=== PATIENT | male | born 2000 | race Caucasian/White ===

== ENCOUNTER 2019-05-07 03:07 | Emergency (ER) | payer BC ==
[2019-05-07] MEDS ORDERED: Lidocaine 1% INJ* 10 MG/ML 30 ML SDV INJ ONE (03:43)
[2019-05-07] MEDS ORDERED: Morphine 4 MG/ML VIAL (1 ml) 4 MG/ML VIAL IV ONE ×2 (03:44→03:48)
--- NOTE | 2019-05-07 03:52 | ED ---
Upper Extremity Pain - HPI Summary HPI Summary: Pt is a 18 y/o M presenting to the ED for a chief complaint of right shoulder dislocation. Pt awoke at 02:30 with a right shoulder deformity and right shoulder pain. Pt rates the right shoulder pain as a 4/10. Pt denies fever. Pt was previously seen at another facility in [place], [place]. Pt has a PMHx of 1 shoulder dislocation in the past. 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 Pt drinks alcohol occasionally. Pt denies any PMHx or PSHx. Pt admits FMHx of DM Type II. - History of Current Complaint Chief Complaint: EDShoulderClaRavenj Stated Complaint: shoulder injury Time Seen by Provider: 05/07/19 03:35 Hx Obtained From: Patient Mechanism Of Injury: Other - Awoke after sleeping with deformity Onset/Duration: Started Hours Ago, Atraumatic, Still Present Timing: Lasting Hours Severity Initially: Moderate Severity Currently: Moderate Pain Location: Shoulder - Right Aggravating Factor(s): Nothing Alleviating Factor(s): Nothing Associated Signs & Symptoms: Positive: Negative. Negative: Fever - Allergies/Home Medications Allergies/Adverse Reactions: Allergies Allergy/AdvReac Type Severity Reaction Status Date / Time No Known Allergies Allergy Verified 05/07/19 03:12 PMH/Surg Hx/FS Hx/Imm Hx Previously Healthy: Yes Endocrine/Hematology History: Denies: Hx Diabetes Cardiovascular History: Denies: Hx Hypertension Sensory History: Denies: Hx Legally Blind, Hx Deafness Opthamlomology History: Denies: Hx Legally Blind EENT History: Denies: Hx Deafness - Surgical History Surgical History: None Surgery Procedure, Year, and Place: None Infectious Disease History: No Infectious Disease History: Denies: Traveled Outside the in Last 30 Days - Family History Known Family History: Negative: Diabetes - Social History Alcohol Use: Occasionally Hx Substance Use: No Substance Use Type: Reports: None Hx Tobacco Use: No Smoking Status (MU): Never Smoked Tobacco Review of Systems Negative: Fever Positive: Arthralgia - Right shoulder, Other - Right shoulder dislocation All Other Systems Reviewed And Are Negative: Yes Physical Exam - Summary Physical Exam Summary: Constitutional: Well-developed, Well-nourished, Alert. (-) Distressed Skin: Warm, Dry HENT: Normocephalic; Atraumatic Eyes: Conjunctiva normal Neck: Musculoskeletal ROM normal neck. (-) JVD, (-) Stridor, (-) Nuchal rigidity Cardio: Rhythm regular, rate normal, Heart sounds normal; Intact distal pulses; Radial pulses are 2+ and symmetric. (-) Murmur Pulmonary/Chest wall: Effort normal. (-) Respiratory distress, (-) Wheezes, (-) Rales Abd: Soft, (-) tenderness, (-) Distension, (-) Guarding, (-) Rebound Musculoskeletal: (-) Edema. Right shoulder deformity. Lymph: (-) Cervical adenopathy Neuro: Alert, Oriented x3 Psych: Mood and affect Normal Triage Information Reviewed: Yes Vital Signs On Initial Exam: Initial Vitals Temp Pulse Resp BP Pulse Ox 97.6 F 72 16 128/76 97 05/07/19 03:09 05/07/19 03:09 05/07/19 03:09 05/07/19 03:09 05/07/19 03:09 Vital Signs Reviewed: Yes Procedures - Sedation Patient Received Moderate/Deep Sedation with Procedure: No - Joint Reduction Right Joint Reduction Site: shoulder (R) Conscious Sedation: No - Given 10 cc of Lidocaine and Morphine Reduction Attempts: 1 Pre-Procedure NV Exam: Yes - Intact Post Joint Reduction Film: joint reduced Diagnostics - Vital Signs Vital Signs Temp Pulse Resp BP Pulse Ox 05/07/19 03:09 97.6 F 72 16 128/76 97 - Laboratory Lab Statement: Any lab studies that have been ordered have been reviewed, and results considered in the medical decision making process. - Radiology Shoulder X-ray Radiology Interpretation Completed By: ED Physician Summary of Radiographic Findings: Shoulder X-ray IMPRESSION: Anterior shoulder dislocation. Reviewed and interpreted by ED physician; pending official radiology report. Re-Evaluation - Re-Evaluation First Eval Change: Improved - XR w successful reduction. Course/Dx - Course Course Of Treatment: 18 y/o male w hx R shoulder dislocation p/w R shoulder pain and deformity. - PE w R shoulder deformity, PMS intact. XR confirms anterior dislocation. Successfully reduced, PMS intact post reduction. - given sling, will f/u w [facility] - Diagnoses Provider Diagnoses: Shoulder dislocation Discharge ED - Sign-Out/Discharge Documenting (check all that apply): Patient Departure - Discharge Plan Condition: Stable Disposition: HOME Patient Education Materials: Shoulder Dislocation (ED) Referrals: [facility] - Espinoza PALMER [Primary Care Provider] - Additional Instructions: You were seen in the emergency department for a shoulder dislocation. We were able to reduce it here. If any studies were not completed at the time of discharge you will be called with the relevant results. Please follow up with your primary care doctor in next 2-3 days and return to emergency department for worsening or concerning symptoms. It was a pleasure taking care of you today. - Billing Disposition and Condition Condition: STABLE Disposition: Home - Attestation Statements Document Initiated by Oliverio: Yes Documenting Scribe: Michelle Guevara Provider For Whom Oliverio is Documenting (Include Credential): Silvia Jack MD Scribe Attestation: IMichelle, scribed for Silvia Jack MD on 05/07/19 at 0443. Scribe Documentation Reviewed: Yes Provider Attestation: The documentation as recorded by the Michelle coronado accurately reflects the service I personally performed and the decisions made by , Silvia Jack MD Status of Scribe Document: Viewed
[2019-05-07 05:01] VITALS: BP 114/51
== END 2019-05-07 05:00 | disposition home or self-care (01) ==
LOC: ED 03:07
DX: S43.004A Unspecified dislocation of right shoulder joint, initial encounter (principal); X58.XXXA Exposure to other specified factors, initial encounter; Y92.9 Unspecified place or not applicable
CPT/HCPCS: 23650; 96374; 99282; J2270

== ENCOUNTER → 2019-10-03 18:51 | Emergency (ER) | payer BC ==
[~2019-10-03 18:51] MED LIST: NS 0.9% 1000 ML** 1,000 ML IV ONE; fentaNYL* 50 MCG/ML 2 ML VIAL (100 MCG VIAL) IV SLOW PU ONE
[2019-10-03 18:58] VITALS: BP 137/92
--- NOTE | 2019-10-03 19:24 | ED ---
Upper Extremity Pain - HPI Summary HPI Summary: Patient is a 19 y/o M presenting to [facility] with an obvious right shoulder dislocation. He states that his shoulder has been dislocated numerous times before, including once while sleeping. Shoulder became dislocated while he was playing basketball earlier today. He went to [facility] and was sent to [facility] for reduction. Home medications and allergies are reviewed. No fever as vitals show temp of 98.5 F. Home Medications Medication Instructions Recorded Confirmed Type NK [No Home Medications Reported] 10/03/19 10/03/19 History - History of Current Complaint Chief Complaint: EDExtremityUpper Stated Complaint: RIGHT SHOULDER DISLOCATION Time Seen by Provider: 10/03/19 19:16 Hx Obtained From: Patient Mechanism Of Injury: Other - playing basketball Onset/Duration: Still Present Timing: Constant Pain Location: Shoulder Aggravating Factor(s): Other - playing basketball Associated Signs & Symptoms: Positive: Negative - Allergies/Home Medications Allergies/Adverse Reactions: Allergies Allergy/AdvReac Type Severity Reaction Status Date / Time peanut Allergy Rash And Verified 10/03/19 18:59 Itching shellfish derived Allergy Swelling Verified 10/03/19 18:59 Of Face,Lips,& Throat tree nut Allergy Rash And Verified 10/03/19 18:59 Itching Home Medications: Home Medications NK [No Home Medications Reported] 10/03/19 [History Confirmed 10/03/19] PMH/Surg Hx/FS Hx/Imm Hx Endocrine/Hematology History: Denies: Hx Diabetes Cardiovascular History: Denies: Hx Hypertension Sensory History: Denies: Hx Legally Blind, Hx Deafness Opthamlomology History: Denies: Hx Legally Blind - Surgical History Surgery Procedure, Year, and Place: None Infectious Disease History: No Infectious Disease History: Denies: Traveled Outside the [place] in Last 30 Days - Family History Known Family History: Negative: Diabetes - Social History Alcohol Use: Occasionally Hx Substance Use: No Substance Use Type: Reports: None Hx Tobacco Use: No Smoking Status (MU): Never Smoked Tobacco Review of Systems Negative: Fever - No fever as vitals show temp of 98.5 F. Positive: Other - right dislocated shoulder All Other Systems Reviewed And Are Negative: Yes Physical Exam - Summary Physical Exam Summary: Appearance: Well-appearing, Well-nourished, lying in bed comfortably Skin: Warm, dry, no obvious rash Eyes: sclera anicteric, no conjunctival pallor HENT: mucous membranes moist, pharynx appears normal Neck: Supple, nontender Respiratory: Clear to auscultation, no signs of respiratory distress Cardiovascular: Normal S1, S2. No murmurs. Normal distal pulses in tibial and radial bilaterally. Abdomen: Soft, nontender, normal active bowel sounds present Musculoskeletal: There is a deformity of the right shoulder that is consistent with anterior dislocation. Otherwise normal exam. Neurological: A&Ox3, awake and alert, mentation is normal, speech is fluent and appropriate Psychiatric: affect is normal, does not appear anxious or depressed Triage Information Reviewed: Yes Vital Signs On Initial Exam: Initial Vitals Temp Pulse Resp BP Pulse Ox 98.5 F 81 18 137/92 97 10/03/19 18:55 10/03/19 18:55 10/03/19 18:55 10/03/19 18:55 10/03/19 18:55 Vital Signs Reviewed: Yes Procedures - Procedure Summary Procedure Summary: Right shoulder dislocation was reduced. First attempt was unsuccessful. Second attempt after administration of 100 mcg Fentanyl IV was successful. Reduction was confirmed with x-ray. No complications during procedure. - Sedation Patient Received Moderate/Deep Sedation with Procedure: No - Joint Reduction Right Shoulder Joint Reduction Site: shoulder (R) Conscious Sedation: No Reduction Attempts: 2 Pre-Procedure NV Exam: Yes Post Joint Reduction Film: joint reduced, no fracture seen Diagnostics - Vital Signs Vital Signs Temp Pulse Resp BP Pulse Ox 10/03/19 18:55 98.5 F 81 18 137/92 97 - Laboratory Lab Statement: Any lab studies that have been ordered have been reviewed, and results considered in the medical decision making process. - Radiology RIGHT SHOULDER X-RAY Radiology Interpretation Completed By: ED Physician Summary of Radiographic Findings: NO FRACTURE, SHOULDER IS IN THE CORRECT ANATOMICAL PLACE; SUCCESSFUL REDUCTION, PENDING OFFICIAL REPORT. - Ultrasound BEDSIDE US OF RIGHT SHOULDER Ultrasound Interpretation Completed By: ED Physician Summary of Ultrasound Findings: Bedside US confirms physical exam findings of right anterior shoulder dislocation. Course/Dx - Course Course Of Treatment: Patient is a 19 y/o M presenting to [facility] with an obvious right shoulder dislocation. He states that his shoulder has been dislocated numerous times before, including once while sleeping. Shoulder became dislocated while he was playing basketball earlier today. He went to [facility] and was sent to [facility] for reduction. There is a deformity of the right shoulder that is consistent with anterior dislocation. Bedside US confirms physical exam findings of right anterior shoulder dislocation. Right shoulder dislocation was reduced. First attempt was unsuccessful. Second attempt after administration of 100 mcg Fentanyl IV was successful. Reduction was confirmed with x-ray, no fracture seen on x-ray. No complications during procedure. Patient was discharged to home and given orthopedic followup. - Diagnoses Provider Diagnoses: Recurrent dislocation, right shoulder Discharge ED - Sign-Out/Discharge Documenting (check all that apply): Patient Departure - discharge - Discharge Plan Condition: Stable Disposition: HOME Patient Education Materials: Shoulder Dislocation Exercises (GEN), Shoulder Dislocation (ED) Referrals: [facility] - Espinoza [Primary Care Provider] - Marty Barnhart MD [Medical Doctor] - Additional Instructions: You should make arrangements to see an orthopedic surgeon at home, as you may benefit from surgery to prevent future dislocations. In the meantime we usually keep patients in a sling for 2 weeks after a dislocation as the shoulder muscles need some time to heal. Be careful reaching above your head or far in front of you for the next few weeks, and I would avoid contact sports or sports that require a lot of shoulder motion until you can get a more thorough orthopedic evaluation. - Billing Disposition and Condition Condition: STABLE Disposition: Home - Attestation Statements Document Initiated by Oliverio: Yes Documenting Scribe: RONEN LEE Provider For Whom Oliverio is Documenting (Include Credential): JOSE RAFAEL GORDON MD Scribe Attestation: I, RONEN LEE, scribed for JOSE RAFAEL GORDON MD on 10/04/19 at 0348. Scribe Documentation Reviewed: Yes Provider Attestation: The documentation as recorded by the RONEN coronado accurately reflects the service I personally performed and the decisions made by me, JOSE RAFAEL GORDON MD Status of Scribe Document: Viewed
--- NOTE | 2019-10-04 16:51 | ED ---
Imaging and Labs Follow Up Follow Up Type: Imaging Labs/Culture Result: Questionable hill-sachs deformity Patient will f/u with ortho Imaging Result: hill sachs with shoulder dislocation Patient Communication/Plan: patient told to f/u with ortho - nothing further required Provider Diagnoses: Recurrent dislocation, right shoulder
== END | disposition home or self-care (01) ==
LOC: ED 18:51
DX: M24.411 Recurrent dislocation, right shoulder (principal)
CPT/HCPCS: 23650; 99282; J3010